=== PATIENT | female | born 1945 | race Caucasian/White ===

== ENCOUNTER → 2023-04-20 14:06 | Outpatient (REF) | payer OTHER, SELFPAY | LOC: WDC 14:06 | PROVIDERS: ATTENDING PHYSICIAN Student in an Organized Health Care Education/Training Program | DX: Z12.31 Encounter for screening mammogram for malignant neoplasm of breast (principal) | CPT/HCPCS: 77063; 77067 ==

== ENCOUNTER → 2023-11-08 10:05 | Outpatient (REF) | payer OTHER, SELFPAY | LOC: RAD 10:05 | PROVIDERS: ATTENDING PHYSICIAN Physician Assistant Medical; REFERRING PHYSICIAN Internal Medicine Endocrinology, Diabetes & Metabolism | DX: M85.89 Other specified disorders of bone density and structure, multiple sites (principal); Z78.0 Asymptomatic menopausal state | CPT/HCPCS: 77080 ==

== ENCOUNTER → 2023-12-06 10:53 | Outpatient (REF) | payer OTHER, SELFPAY | LOC: RAD 10:53 | PROVIDERS: ATTENDING PHYSICIAN Physician Assistant Medical | DX: R74.8 Abnormal levels of other serum enzymes (principal) | CPT/HCPCS: 76700 ==

== ENCOUNTER → 2024-04-24 12:00 | Outpatient (REF) | payer OTHER, SELFPAY | LOC: WDC 12:00 | PROVIDERS: ATTENDING PHYSICIAN Physician Assistant Medical | DX: Z12.31 Encounter for screening mammogram for malignant neoplasm of breast (principal) | CPT/HCPCS: 77063; 77067 ==

== ENCOUNTER 2024-06-28 06:25 | Day surgery (SDC) | payer OTHER, SELFPAY | END 2024-06-28 08:23 | disposition home or self-care (01) | LOC: GI 06:25 | PROVIDERS: ATTENDING PHYSICIAN Internal Medicine Gastroenterology | DX: Z12.11 Encounter for screening for malignant neoplasm of colon (principal); D12.0 Benign neoplasm of cecum; D12.3 Benign neoplasm of transverse colon; K57.30 Diverticulosis of large intestine without perforation or abscess without bleeding; K64.8 Other hemorrhoids; Z83.719 Family history of colon polyps, unspecified | CPT/HCPCS: 45385; 45380; 88305 ==

== ENCOUNTER → 2024-07-18 08:29 | Outpatient (REF) | payer OTHER, SELFPAY | LOC: WDC 08:29 | PROVIDERS: ATTENDING PHYSICIAN Physician Assistant | DX: N64.4 Mastodynia (principal) | CPT/HCPCS: 76642 ==